=== PATIENT | female | born 1960 ===

== ENCOUNTER 2017-06-15 12:04 | Day surgery (SDC) | payer MEDICAID ==
[2017-06-08 10:24] VITALS: BMI 32.1
[2017-06-15] MEDS ORDERED: Midazolam 2 MG/2 ML VIAL ONE (12:41)
[2017-06-15] MEDS ORDERED: Propofol 10 mg/ml Inj (20 ML) ONE (12:41)
[2017-06-15] MEDS ORDERED: Sodium Chloride 0.9% 1,000 ML IV SCH (13:45)
[2017-06-15 13:50] VITALS: TEMP 97.7; O2SAT 99
[2017-06-15 14:49] VITALS: BP 140/74; PULSE 59; RESP 18
== END 2017-06-15 14:59 | disposition home or self-care (01) ==
LOC: ENDO 12:04
PROVIDERS: ATTEND Internal Medicine
DX: K64.8 Other hemorrhoids (principal); K62.89 Other specified diseases of anus and rectum; R19.5 Other fecal abnormalities; I10 Essential (primary) hypertension
CPT/HCPCS: 45378; J2250; J2704; J7040